=== PATIENT | female | born 1955 | race Caucasian/White ===

== ENCOUNTER 2024-04-13 09:29 | Outpatient (CLI) | payer MEDICARE, MEDICAID ==
[2024-04-13] VITALS (9 sets, daily range): BP systolic 111–144; BP diastolic 57–72; PULSE 56–81; RESP 14–16; O2SAT 98–99
[2024-04-13] MEDS: regadenoson 0.4mg/5ml syringe IV ONE (11:51)
== END 2024-04-13 23:59 | disposition home or self-care (01) ==
LOC: RAD 09:29 → NM 23:59
PROVIDERS: ATTEND Nurse Practitioner Family
DX: R94.39 Abnormal result of other cardiovascular function study (principal); R07.9 Chest pain, unspecified
CPT/HCPCS: 78452; A9500; J2785